=== PATIENT | female | born 1990 | race Caucasian/White ===

== ENCOUNTER 2017-06-18 07:49 | Inpatient (IN) | payer MEDICAID ==
[2017-06-18] MEDS ORDERED: Ondansetron 4 MG/2 ML SDV IV PRN ×2 (08:07→08:36)
[2017-06-18] MEDS ORDERED: Penicillin G Potassium 5 MILLUNITS in Sodium Chloride 0.9% 100 ML IV ONE (08:07)
[2017-06-18] MEDS: Lactated Ringers 1,000 ML IV SCH ×2 (08:15→08:49)
[2017-06-18] MEDS ORDERED: fentaNYL 100 MCG/2 ML SDV ONE (08:29)
[2017-06-18] MEDS ORDERED: Misoprostol 400 MCG (4 X 100 MCG TAB) RECTAL PRN (08:36)
[2017-06-18] MEDS ORDERED: Lidocaine 1% 30 ML SDV INJECT PRN (08:36)
[2017-06-18] MEDS ORDERED: Methylergonovine 0.2 MG/1 ML Amp IM PRN (08:36)
[2017-06-18] MEDS ORDERED: Carboprost Tromethamine 250 MCG/1 ML Amp IM PRN (08:36)
[2017-06-18] MEDS ORDERED: Lactated Ringers 1,000 ML IV SCH (08:45)
[2017-06-18] MEDS ORDERED: ePHEDrine 50 MG/ML SDV ONE (08:57)
--- NOTE | 2017-06-18 09:15 | PCM.SN ---
- Free Text/Narrative Note: Called to provide labor pain relief via intrathecal for this patient. After chart review, npo status verified, consent signed and monitors on, proceeded. With patient in sitting position, sterile prep/drape. Skin wheal at L3-4 with 1 % Lidocaine. LP X 2 at L3-4 with 25g pencan spinal needle. Positive, free flowing clear CSF, no heme, no paresthesia. Then 6mg mpf HB spinal 0.75% marcaine, 20mcg sufenta, 30mcg fentanyl, 0.4ml preservative free normal saline, plus epi wash given intrathecally. Pt to supine after. Block to around T4. Maternal SBP dropped to high 80's and FHT's dropped into 70's very transiently, so 20mg ephedrine given iv with good response. Pt also placed in left lateral position. Pt reported pain relief with subsequent contractions.
[2017-06-18] MEDS ORDERED: Oxytocin/Normal Saline 30 UNIT/500 ML BAG IV SCH (09:45)
[2017-06-18] MEDS ORDERED: Sodium Chloride 0.9% 10 ML Syringe FLUSH PRN (11:58)
[2017-06-18] MEDS ORDERED: Simethicone 80 MG Tab.Chew PO PRN (11:58)
[2017-06-18] MEDS ORDERED: Benzocaine/Menthol 20%-0.5% Spray 56 GM Canister TOP PRN (11:58)
--- NOTE | 2017-06-18 12:23 | HP ---
CHIEF COMPLAINT: Increased force and frequency of contractions. HISTORY OF PRESENT ILLNESS: A 27-year-old, 2, para 1-0-0-1, currently at 39 and 3/7 weeks gestation based on last menstrual period, presenting to Labor and Delivery reporting having contractions pretty much all day yesterday, but this morning they got stronger and closer together. She was evaluated yesterday and they were only about every 5 to 7 minutes. This morning, she got up and they were about every 5 minutes and then got as close as every 3 minutes by the time she presented to the hospital. She has had some bloody show. No leakage of fluid. movement has been good. Denies any symptoms of preeclampsia. Denies other questions or concerns at this time. OBSTETRICAL HISTORY: Normal anatomy ultrasound dating is excellent. She has had an anterior placenta with no previa. Prior delivery 05/08/2013, at 37 weeks 3 days' gestation, female infant, born vaginally, and her name is Kelsie, weight 2680 g, under intrathecal anesthesia. First stage of 12 hours, stage II of 30 minutes, scores of 9 and 9. The patient reports being very sick during that and had lost 45 pounds and only regained 9. She reports that she progressed quickly after her intrathecal and only needed to push about 5 times. 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 Malone, here at [facility]. LABORATORY DATA: Blood type B positive. Antibody screen negative. Rubella immune. Syphilis negative. Urine culture negative. Hepatitis B negative. HIV negative. Gonorrhea and chlamydia negative. TSH normal. Hepatitis C negative. Quad screen normal. Group B strep positive. She is getting her penicillin for prophylaxis at this time, and records are reviewed. PAST MEDICAL HISTORY: Back pain. Body piercing's. No IV drug use or blood transfusions. History of chronic headaches. Family history of heart attack. Menarche at age 14 to 15 with menses every 28 days and 5 days of flow. She does have some tattoos. PAST SURGICAL HISTORY: Bunionectomy, tonsillectomy, and adenoidectomy. FAMILY HISTORY: Father with heart disease, hypertension, and heart attack at age 40, and his second in his 60s. Brother with diabetes, who in his late 30s from complications of diabetes. Maternal grandmother with diabetes and ovarian cancer. Maternal grandfather with multiple myeloma. Paternal grandmother with diabetes and heart disease. Daughter with Vieyra syndrome. Family history is otherwise unremarkable. SOCIAL HISTORY: The patient is single and has 1 child. 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 She has never smoked. She does not do any drugs or alcohol. Father of the baby is Rangel Dixon and he is a police lieutenant, and they live in [place] together. MEDICATIONS: 1. vitamins 1 daily. 2. Tylenol as needed. ALLERGIES: Pineapple causes swelling of the face, nose, lips, and angioedema. REVIEW OF SYSTEMS: As listed under history of present illness. No fever or chills. No chest pain or shortness of breath. No blurry vision or headaches. She has had a persistence of her swelling, and denies other concerns. PHYSICAL EXAMINATION: General: This is a pleasant, well-appearing 27-year-old female. Vital Signs: Initial blood pressure 142/92, and pulse of 96. Recheck was 149/94, 156/99; eventually came down to 136/90; and then after her intrathecal, 98/52 and 87/53. HEENT: Unremarkable. Heart: Regular without obvious murmur. Lungs: Clear to auscultation bilaterally. Abdomen: Gravid, soft, and nontender. Baby is cephalic. heart tones were tracing at 135 beats per minute with moderate rqlv-[id number] variability and accelerations noted. Contractions about every 3 to 4 minutes. Cervix: Per nurse's exam was 6 cm dilated, and 50% to 75% effaced, and -2 station. Extremities: 1+ edema bilaterally. No erythema or tenderness noted. Skin: Warm, dry, and appropriate for race without infections. After patient's intrathecal, she did have a heart tone deceleration down into the 70s that lasted approximately 6 minutes and responded well to ephedrine. At the same time, I was checking and performing stimulation and she had spontaneous rupture of clear fluid. ASSESSMENT: 1. A 39 and 3/7 weeks intrauterine based on last menstrual period in active labor. 2. Blood type B positive. 3. Rubella immune. 4. Group B strep positive, being treated with penicillin. 5. 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 6. History of heartburn in . 7. Cholestasis. 8. History of yeast infection in the first trimester. PLAN: The patient was admitted to Labor and Delivery. She has been getting her penicillin for prophylaxis. Allowing the baby to recover after that deceleration. We continue to monitor her blood pressures and her symptoms closely. We will also be checking her labor progress and if necessary augmenting, however, I anticipate based on her prior history she will continue to progress well. [facility] /[id number]
--- NOTE | 2017-06-18 16:08 | DEL ---
DATE: 06/18/2017 PREPROCEDURE DIAGNOSES: 1. 2, para 1-0-0-1. 2. A 39 and 3/7 weeks gestation by last menstrual. 3. Blood type B positive. Rubella immune. Group B strep positive, treated during labor. 4. History of child with Vieyra syndrome. 5. Heartburn of . 6. Cholecystitis. 7. Yeast infection in the first trimester. POSTPROCEDURE DIAGNOSES: 1. 2, para 2-0-0-2. 2. A 39 and 3/7 weeks gestation by last menstrual. 3. Blood type B positive. Rubella immune. Group B strep positive, treated during labor. 4. History of child with Vieyra syndrome. 5. Heartburn of . 6. Cholecystitis. 7. Yeast infection in the first trimester. 8. Status post uncomplicated vaginal delivery of viable female infant. BRIEF HISTORY: A 27-year-old female, admitted to the hospital this morning with increased force and frequency with regular contractions. She has had a little bit of bloody show and was 6 cm on admission. She continued to progress nicely through labor with an intrathecal for anesthesia. She was in labor for about 5 hours and pushed for 9 minutes prior to delivery. Labor course was only remarkable for a 5 minute deceleration due to hypotension after the intrathecal, and baby recovered well from that with usual measures. PROCEDURE IN DETAIL: With the patient in lithotomy position, she delivered a viable female in the OA position over intact perineum. After the infant's head delivered shoulders followed thereafter, and then baby was briefly dried, crying well, and delivered up to mother's abdomen. No bulb suction was necessary. Delayed cord clamping was performed, and then the umbilical cord was cut, and three-vessel verified, cord blood sample obtained, and placenta delivered by gentle cord traction and concomitant uterine massage, inspected and intact. Labia, vagina, and cervix were inspected and intact. There were no complications. FINDINGS: Viable female , scores of 9 and 9. weight 3310 g, 7 pounds 5 ounces. ESTIMATED BLOOD LOSS: 150 mL. COMPLICATIONS: None. DISPOSITION: Mother and baby to stay in the room at this time and start . [facility] /[id number]
[2017-06-18] MEDS: Ibuprofen 800 MG Tab PO PRN (16:48)
[2017-06-18] MEDS: Docusate Sodium 100 MG Cap PO PRN (21:19)
[2017-06-18] MEDS: Acetaminophen 325 MG Tab PO PRN (23:33)
[2017-06-19] MEDS: Ibuprofen 800 MG Tab PO PRN ×2 (00:52→09:01)
[2017-06-19] MEDS: Acetaminophen/oxyCODONE 325-5 MG Tab PO PRN ×2 (00:52→07:26)
[2017-06-19] MEDS ORDERED: Prenatal Multivitamin with Calcium/Folic Acid/Iron Tab PO SCH (09:00)
[2017-06-19] MEDS: Docusate Sodium 100 MG Cap PO PRN (09:01)
[2017-06-19 10:03] VITALS: BP 121/67
[2017-06-19] MEDS: Acetaminophen 325 MG Tab PO PRN (12:48)
[2017-06-19] MEDS ORDERED: ePHEDrine 50 MG/ML SDV IV ONE (14:19)
[2017-06-19] MEDS ORDERED: fentaNYL 100 MCG/2 ML SDV ITHECAL ONE (14:19)
--- NOTE | 2017-06-19 14:22 | DISCH ---
ADMITTING DIAGNOSES: 1. 2, para 1-0-0-1, at 39 and 3/7 weeks' gestation. 2. Blood type B positive. Rubella immune. Group B streptococcus positive. 3. 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 4. Heartburn of . 5. Cholestasis. 6. History of yeast infection in the first trimester. DISCHARGE DIAGNOSES: 1. 2, para 2-0-0-2, at 39 and 3/7 weeks' gestation. 2. Blood type B positive. Rubella immune. Group B streptococcus positive. 3. 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 4. Heartburn of . 5. Cholestasis. 6. History of yeast infection in the first trimester. 7. Transient hypertension with negative preeclampsia labs. 8. Status post spontaneous vaginal delivery of viable female without complications. BRIEF HISTORY: A 27-year-old female admitted to the hospital yesterday in active labor and 6 cm dilated on admission, was given penicillin for group B strep prophylaxis and an intrathecal for pain management. She progressed nicely through labor; and after about 5 hours of active labor, she went on to stage II, pushed for 9 minutes, and delivered a viable female over intact perineum. No lacerations. No complications. Baby did well. scores of 9 and 9 and weight of 3310 g, 7 pounds 5 ounces. HOSPITAL COURSE: The patient has done well since the time of delivery, ambulating, tolerating regular diet, voiding without difficulties, passing flatus, and has not yet had a bowel movement. No symptoms of preeclampsia. Bleeding has been light to moderate. has been going well, and she is meeting discharge criteria. DISCHARGE CONDITION: Good. Blood pressures have improved. PHYSICAL EXAMINATION: Vital Signs: Temperature 97.7, pulse 72, blood pressure 121/67, respiratory rate of 15, and O2 saturations 97% on room air. Heart: Regular without obvious murmur. Lungs: Clear to auscultation bilaterally. Abdomen: Soft and nontender. Fundus is firm and below the umbilicus. Extremities: Trace edema bilaterally. No erythema or tenderness noted. DISPOSITION: Home with family. FOLLOWUP: A followup 6-week exam will be scheduled. LABORATORY DATA: Baseline hemoglobin was 12.8 and platelets of 272. There was minimal bleeding with delivery. Therefore, repeat lab was not performed. MEDICATIONS: 1. Percocet 5/325 one tablet every 4 to 6 hours as needed for pain, dispense 10. 2. Ibuprofen 600 mg every 6 hours as needed for pain. 3. Tylenol 650 mg every 6 hours as needed for pain. 4. Continue vitamin 1 daily. DISCHARGE INSTRUCTIONS: The routine post vaginal delivery instructions for mother were provided, and her questions were answered. [facility] /[id number]
--- NOTE | 2017-06-20 16:10 | PCM.POSTAN ---
POST ANESTHESIA ASSESSMENT - MENTAL STATUS Mental Status: Alert - VITAL SIGNS Pulse Rate: 72 SaO2: 100 Resp Rate: 15 Blood Pressure: 121/67 Temperature: 36.3 C - RESPIRATORY Respiratory Status: Respiratory Rate WNL - CARDIOVASCULAR CV Status: Pulse Rate WNL - GASTROINTESTINAL GI Status: No Symptoms - POST OP HYDRATION Hydration Status: Adequate & Stable - OBSERVATIONS Free Text/Narrative:: Pt was d/c prior to my being able to see her. Nurses report that she had no c/ o. No post anesthesia complications noted.
== END 2017-06-19 14:20 | disposition home or self-care (01) | DRG 774 ==
LOC: DL.OBCHECK 07:49 → DL.OB 08:12 → OBSVTOIN 11:26
PROVIDERS: ADMIT Family Medicine; ATTEND Family Medicine
PROC: 10E0XZZ Delivery of Products of Conception, External Approach (ICD-10-PCS; principal; 2017-06-18)
PROC: 4A1HXFZ Monitoring of Products of Conception, Cardiac Rhythm, External Approach (ICD-10-PCS; 2017-06-18)
PROC: 00HU33Z Insertion of Infusion Device into Spinal Canal, Percutaneous Approach (ICD-10-PCS; 2017-06-18)
PROC: 3E0R3CZ (ICD-10-PCS; 2017-06-18)
DX: O99.824 Streptococcus B carrier state complicating childbirth (principal); O13.5 Gestational [pregnancy-induced] hypertension without significant proteinuria, complicating the puerperium; K83.1 Obstruction of bile duct; O76 Abnormality in fetal heart rate and rhythm complicating labor and delivery; O26.62 Liver and biliary tract disorders in childbirth; Z91.018 Allergy to other foods; Z3A.39 39 weeks gestation of pregnancy; Z37.0 Single live birth
CPT/HCPCS: 01967; 36415; 82570; 83615; 84156; 84450; 84460; 84520; 84550; 85025; A9270-GY; J2405; J2540; J2590; J3010; J7050; J7120

== ENCOUNTER 2018-11-15 01:26 | Inpatient (IN) | payer BC ==
[2018-11-15] MEDS ORDERED: Misoprostol 25 MCG (1/4 of 100 MCG) Tab VAG PRN (02:30)
[2018-11-15] MEDS ORDERED: Oxytocin/Normal Saline 30 UNIT/500 ML BAG IV SCH (02:30)
[2018-11-15] MEDS ORDERED: Sodium Chloride 0.9% 10 ML Syringe FLUSH PRN ×2 (02:30→02:37)
[2018-11-15] MEDS ORDERED: Lidocaine 1% 30 ML SDV INJECT PRN (02:37)
[2018-11-15] MEDS ORDERED: Methylergonovine 0.2 MG/1 ML Amp IM PRN (02:37)
[2018-11-15] MEDS ORDERED: Tranexamic Acid 1,000 MG in Sodium Chloride 0.9% 100 ML IV PRN (02:37)
[2018-11-15] MEDS ORDERED: Misoprostol 400 MCG (4 X 100 MCG TAB) RECTAL PRN (02:37)
[2018-11-15] MEDS ORDERED: Carboprost Tromethamine 250 MCG/1 ML Amp IM PRN (02:37)
[2018-11-15] MEDS ORDERED: EPINEPHrine 1 MG/ML SDV ONE ×2 (02:43→10:44)
[2018-11-15] MEDS ORDERED: fentaNYL 100 MCG/2 ML SDV ITHECAL ONE (02:43)
[2018-11-15] MEDS ORDERED: Lactated Ringers 1,000 ML IV SCH (02:45)
[2018-11-15] MEDS: Lactated Ringers 1,000 ML IV SCH ×5 (02:50→15:09)
[2018-11-15] MEDS: Ondansetron 4 MG/2 ML SDV IV PRN ×3 (03:30→15:35)
--- NOTE | 2018-11-15 08:41 | OBOUT ---
DATE: 11/15/2018 INITIAL TIME: 1:36 a.m. REPORT: Baseline heart rate 150 beats per minute. Moderate logf-yo-zpoc variability. Only 1 acceleration in 40 minutes. Contractions irregular every 4 to 6 minutes. INTERPRETATION: Category II, reassuring, but nonreactive nonstress test. Continued NST monitoring does show baseline change to 140 for the baseline. Moderate ngsy-rf-hqnb variability. Accelerations noted. Contraction pattern remained irregular every 4 to 6 minutes. Interpretation of second portion is now category I. [facility] /[id number]
--- NOTE | 2018-11-15 09:22 | HP ---
HISTORY OF PRESENT ILLNESS: Nicolasa Dixon is age 28-year-old, G3, P2-0-0-2, presenting at 39 weeks and 5 days' gestation with painful contractions and nausea and vomiting since this afternoon, was seen in clinic earlier this afternoon where her membranes were stripped. She has been unable to keep anything down this afternoon. The patient reports good movement and denies rupture of membranes or vaginal bleeding. The patient is also diet- controlled gestational diabetic. Last menstrual period was 02/10/2018. Estimated date of delivery is 11/17/2018. ABO Rh is B positive. Antibody screen is negative. She is rubella immune. GBS negative. Gestational diabetic, diet controlled. PAST OBSTETRIC HISTORY: #1 delivered at term via normal spontaneous vaginal delivery with a weight of 3310 g. #2 delivered at term via normal spontaneous vaginal delivery. Weight of 2608 g. The patient has plans to breastfeed. PAST MEDICAL HISTORY: Includes a history of cholelithiasis diagnosed by ultrasound in December of 2016, but no cholecystectomy. PAST SURGICAL HISTORY: Includes tonsillectomy and bunion removal. MEDICATIONS: Takes a . ALLERGIES: No known drug allergies, but is allergic to pineapples. SOCIAL HISTORY: Never smoker. Occasional alcohol use, but none while knowing she was . She lives at home in [place] with her and 2 children. 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 PHYSICAL EXAMINATION: Vital Signs: Blood pressure 130/84, pulse 112, and temperature 97.5. heart tones average 140, moderate variability initially. No accelerations and category 2 strip, which improved after observation with contractions every 3 to 9 minutes. General: She is a well-developed, well-nourished, and gravid woman, in no apparent distress, sitting in hospital bed. HEENT: unremarkable. Cardio: Tachycardic, regular rhythm. No murmurs, rubs, or gallops. Lungs: Clear to auscultation bilaterally. No rhonchi, wheezes, or rales. Abdomen: Gravid. Fetus is vertex. Fundus is nontender. Pelvic: Cervical exam 3 cm, 50% effaced, 0 to 3 station. Ext: No edema, erythema, or tenderness. ASSESSMENT: 28-year-old, 3, para 2-0-0-2 at 39 weeks 5 days' gestation, who presents with painful contractions and nausea and vomiting in the setting of a category 2 heart tracing, which started to improve over her visit. PLAN: Admit to Labor and Delivery. IV resuscitation with lactated Ringer's at 125 mL an hour. We will do continuous electronic monitoring, Pitocin augmentation, and anticipate a normal spontaneous vaginal delivery. [facility] /[id number] MTDSana
[2018-11-15] MEDS ORDERED: fentaNYL 100 MCG/2 ML SDV ONE ×2 (10:44→15:55)
--- NOTE | 2018-11-15 11:03 | PCM.SN ---
- Free Text/Narrative Note: Intrathecal. Sitting position, sterile prep and drape. 1 % lidociane w bicarb for skinwheal to L2 L3 interspace, introducer, 24 ga pencan x 1. Pos CSF, neg heme, neg parrasthesia. 24 ga pencan x 1. Pos CSF, neg heme, neg parasthesia. 1: 1000 pf epi wash, 15 mcg pf sufenta, 35 mcg pf fentanyl, 0.4 ml pf ns and 6 mg of 0.75 % pf bupivacaine injected after CSF aspiration. Pt to L lateral position. Procedure time 1040 to 1110
[2018-11-15] MEDS ORDERED: fentaNYL 100 MCG/2 ML SDV IVPUSH ONE (14:58)
--- NOTE | 2018-11-15 16:13 | PCM.SN ---
- Free Text/Narrative Note: Intrathecal. Sitting position, sterile prep and drape. 1 % lidocaine w bicarb for skinwheal to L2 L3 interspace, introducer, 24 ga pencan x 1. Pos CSF, neg heme, neg parasthesia. 24 ga pencan x 1. Pos CSF, neg heme, neg parasthesia. 15 mcg pf sufenta, 35 mcg pf fentanyl, 0.4 ml pf ns and 6 mg of 0.75 % pf bupivacaine injected after CSF aspiration. Pt to L lateral position. Procedure time 1555 to 1625
[2018-11-15] MEDS ORDERED: Benzocaine/Menthol 20%-0.5% Spray 56 GM Canister TOP PRN (18:00)
[2018-11-15] MEDS ORDERED: Simethicone 80 MG Tab.Chew PO PRN (18:00)
[2018-11-15] MEDS: Docusate Sodium 100 MG Cap PO PRN (19:35)
[2018-11-15] MEDS: Ibuprofen 800 MG Tab PO PRN (19:35)
[2018-11-16] MEDS: Acetaminophen 325 MG Tab PO PRN ×2 (02:27→23:18)
--- NOTE | 2018-11-16 03:17 | DEL ---
DATE: 11/15/2018 PREPROCEDURE DIAGNOSIS: 1. 2. 39 and 5/7 weeks 3. Gestational diabetes, diet controlled. 4. History of child with Vieyra syndrome. POSTOPERATIVE DIAGNOSIS: Same plus 5. Delivery viable male 6. Delivery macrosomic . BRIEF HISTORY: Present with signs of early labor with a category 2 tracing. Impeding storm and patient lives an hour away with anticipated no travel advisories. Labor augmented with Pitocin. Category 1 tracing through labor. DETAILS: Normal spontaneous vaginal delivery of a viable male infant in the OA position over intact perineum. After delivery of the head there was a few second delay for delivery of the body with Judith position. Tight nuchal cord could not be reduced bluntly and was reduced with somersault maneuver. Baby had no tone so three vessel cord was clamped and cut. Baby taken to the warmer for resuscitation. Placenta was delivered by massage and gentle cord traction, it was later inspected and intact. Fundus was firm with minimal bleeding. The perineum and vagina were inspected with no perineal lacerations observed. Hemostasis was achieved. The patient tolerated the procedure well and was recovering in Labor and Delivery. Infant to Nursery pending further status. EBL: 350 mL. COMPLICATIONS: Unanticipated distress. FINDINGS: Viable male with weight of 4120 g and scores of 2 at one minute, 6 at five minutes, and 7 at ten minutes delivered SLOAN with nuchal cord x1 and light meconium. [facility] /[id number] MTDSana
[2018-11-16] MEDS: Ibuprofen 800 MG Tab PO PRN ×2 (03:24→18:14)
[2018-11-16] MEDS: Acetaminophen/HYDROcodone 325-5 MG Tab PO PRN ×2 (04:59→09:29)
[2018-11-16] MEDS: Docusate Sodium 100 MG Cap PO PRN (09:24)
[2018-11-16] MEDS: Prenatal Multivitamin with Calcium/Folic Acid/Iron Tab PO SCH (09:24)
[2018-11-16] MEDS ORDERED: fentaNYL 100 MCG/2 ML SDV ITHECAL ONE (13:57)
[2018-11-16] MEDS ORDERED: Bisacodyl 10 MG Supp RECTAL ONE (15:02)
[2018-11-17] MEDS: Acetaminophen/HYDROcodone 325-5 MG Tab PO PRN (03:13)
[2018-11-17] MEDS: Docusate Sodium 100 MG Cap PO PRN (10:13)
[2018-11-17] MEDS: Prenatal Multivitamin with Calcium/Folic Acid/Iron Tab PO SCH (10:13)
[2018-11-17] MEDS: Ibuprofen 800 MG Tab PO PRN (10:13)
[2018-11-17 11:20] VITALS: BP 122/69
--- NOTE | 2018-11-17 11:29 | PN ---
DATE: 11/16/2018 PPD#1 for Nicolasa, a 28-year-old G3, now P3, delivered a male via spontaneous vaginal delivery. initially had respiratory distress requiring resuscitation, but appears to be stable. Nicolasa is and states that things are going well. Has lochia rubra, but denies having any clots. Describes her pain as sore and crampy, requiring more pain medication last night , but states that medication has pain well controlled now. She is ambulating and urinating without difficulty, although needs some help going to the restroom. PHYSICAL EXAMINATION: Vital Signs: Temperature is 97.6 Fahrenheit, pulse of 99, blood pressure 115/64, respirations 16, and oxygen saturation 99% on room air. General: Nicolasa is awake and alert. Appearing in no distress, sitting up in bed, chatting with company. Heart: Regular rate and rhythm. No murmurs, rubs, or gallops. Lungs: Clear to auscultation bilaterally. No rhonchi or wheezing. Abdomen: Soft, nontender. Uterus is firm at the level of the umbilicus. Extremities: Warm and dry. No edema noted. No calf tenderness. ASSESSMENT: Nicolasa is day #1 status post normal spontaneous vaginal delivery. PLAN: 1. Continue encouraging ambulation. 2. Tolerating diet well. 3. Encourage breast feeding. 4. Plan to discharge tomorrow if the patient continues to do well and baby continues to be stable. Followup appointment to be scheduled 6 weeks . Patient seen and examined. Agree with note scribed on my behalf by Ayden Perez, 4. -[facility] 11/18/18 2334 MODL /[id number] MTDD
--- NOTE | 2018-11-20 09:56 | DISCH ---
PRIMARY DIAGNOSIS: A 39 weeks 5 days intrauterine with delivery of a liveborn . SECONDARY DIAGNOSIS: Gestational diabetes, diet controlled. PROCEDURES PERFORMED: 1. Spontaneous vaginal delivery with a delivery of live male with scores of two at 1 minute, six at 5 minutes, and seven at 10 minutes. 2. Artificial rupture of membranes. REASON FOR HOSPITALIZATION: This 28-year-old, G3, P2-0-0-2, presented at 39 weeks 5 days gestation in spontaneous labor. The was complicated by gestational diabetes, controlled with diet. LABORATORY DATA: A positive with negative antibody screen, rubella immune, VDRL nonreactive, and group B Strep negative. She remained normotensive throughout her . At the time of admission, she recorded positive movement and denied loss of fluid. PHYSICAL EXAMINATION: Vital Signs: Temp 98.7F BP 122/69 P 16 O2 99% on room air General: The patient is alert, sitting up in bed, holding infant, appearing in no distress. HEENT: Normocephalic and atraumatic. Extraocular movements intact. Sclerae nonicteric. Mucous membranes pink and moist. Neck: Supple. No lymphadenopathy. Heart: Regular rate and rhythm. No murmurs, rubs, or gallops. Lungs: Clear to auscultation bilaterally. No rhonchi or wheezes. Normal respiratory effort. Abdomen: Soft. Some fundal tenderness. Uterus firm at the level of the umbilicus. Bowel sounds in all 4 quadrants. Extremities: Warm and dry. No evidence of pedal edema or calf tenderness. LABORATORY AND X-RAY DATA: CBC WBC 11.0 H/H 13.7/41.9 Plt 248 UA Trace Leukocyte Esterase Mod. Epithelial Cells Many Urine Bacteria Likely contaminant HOSPITAL COURSE: The patient was admitted in latent labor the morning of 11/15/2018 after presenting with nausea and vomiting. The heart rate was not reactive and her initial NST was a category 2 strip. Given the category 2 NST, it was ultimately decided to augment her labor with Pitocin. Her labor progressed well and at 1500 hours, we performed an artificial rupture of membranes with return of clear fluids. At that time, her cervix was dilated to 4 cm, 90%, -3 station. Intrathecal anesthesia was requested and obtained. At 1630 hours, the patient was noted to be completely dilated and at 0 station and then was allowed to push. After pushing for 30 minutes, the patient delivered a nonresponsive baby boy. The was taken immediately to the warmer for pediatric resuscitation and was eventually stabilized. There were no noted perineal tears. The patient is the infant well and has remained afebrile with minimal lochia since delivery. The patient was voiding and ambulating without difficulty by the evening of day #0, and she was deemed stable for discharge on day 2. INSTRUCTION WITH DISCHARGE: The patient was advised to remain at pelvic rest for 6 weeks, this includes no tampon, douching, or intercourse. No driving while taking narcotics. She was asked to call with any signs or symptoms of infection including fever greater than 100.5 degrees, pain, malodorous vaginal discharge, or bleeding greater than 1 pack per hour. MEDICATIONS AT DISCHARGE: Include: 1. Narco 325-5 1 tab PO Q4H PRN Cramping 2. She was asked to continue her vitamin as prescribed. Follow up in [address] Hutchison for routine checkup. [facility] /[id number] SETH
== END 2018-11-17 11:45 | disposition home or self-care (01) | DRG 560 ==
LOC: DL.OBCHECK 01:26 → DL.OB 02:42 → OBSVTOIN 17:16 → EDSTATUS 12-07 01:09
PROVIDERS: ADMIT Family Medicine; ATTEND Family Medicine
PROC: 10E0XZZ Delivery of Products of Conception, External Approach (ICD-10-PCS; principal; 2018-11-15)
PROC: 10907ZC Drainage of Amniotic Fluid, Therapeutic from Products of Conception, Via Natural or Artificial Opening (ICD-10-PCS; 2018-11-15)
DX: O24.420 Gestational diabetes mellitus in childbirth, diet controlled (principal); Z3A.39 39 weeks gestation of pregnancy; Z37.0 Single live birth; Z91.018 Allergy to other foods; O69.1XX0 Labor and delivery complicated by cord around neck, with compression, not applicable or unspecified; O36.63X0 Maternal care for excessive fetal growth, third trimester, not applicable or unspecified; O77.9 Labor and delivery complicated by fetal stress, unspecified; Z23 Encounter for immunization
CPT/HCPCS: 36415; 59409; 81001; 82962; 85027; A9270-GY; J0171; J2405; J2590; J3010; J7120

== ENCOUNTER 2020-10-21 00:40 | Emergency (ER) | payer BC ==
[2020-10-21 00:49] VITALS: BP 139/96; PULSE 97
--- NOTE | 2020-10-21 01:09 | EDM.PDOC ---
ED HPI GENERAL MEDICAL PROBLEM - General Chief Complaint: ENT Problem Stated Complaint: HAS A "CHIP"STUCK IN HER THROAT? Time Seen by Provider: 10/21/20 00:58 Source of Information: Reports: Patient History Limitations: Reports: No Limitations - History of Present Illness INITIAL COMMENTS - FREE TEXT/NARRATIVE: This 30 yo female patient reports to the ED due to a possible chip stuck in her throat. The patient reports she was eating chips at about 2300 last night when she started to feel like the chip was stuck. The patient reports she has been drinking plenty of fluids without difficulties. The patient reports she has not been coughing, but continues to feel discomfort. Onset: Today Duration: Constant Location: Reports: Neck Quality: Reports: Ache Severity: Mild Improves with: Reports: None Worsens with: Reports: None Context: Reports: Other Associated Symptoms: Reports: No Other Symptoms Throat Pain Score (Numeric/FACES): 6 - Related Data Allergies Allergy/AdvReac Type Severity Reaction Status Date / Time No Known Allergies Allergy Verified 10/21/20 00:49 Home Meds: Home Meds Escitalopram Oxalate [Lexapro] 10 mg PO DAILY 10/21/20 [History] Past Medical History HEENT History: Reports: Impaired Vision Other HEENT History: wears glasses Cardiovascular History: Reports: None Respiratory History: Reports: Other (See Below) Other Respiratory History: cold Gastrointestinal History: Reports: Cholelithiasis, Other (See Below) Other Gastrointestinal History: cholecystitis Genitourinary History: Reports: None 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 History: Reports: Hyperemesis, Neurological History: Reports: Migraines Psychiatric History: Reports: None Oncologic (Cancer) History: Reports: None Dermatologic History: Reports: None - Infectious Disease History Infectious Disease History: Reports: None - Past Surgical History Head Surgeries/Procedures: Reports: None HEENT Surgical History: Reports: Adenoidectomy, Tonsillectomy Musculoskeletal Surgical History: Reports: Other (See Below) Other Musculoskeletal Surgeries/Procedures:: bunionectomy Social & Family History - Family History Family Medical History: No Pertinent Family History - Tobacco Use Tobacco Use Status *Q: Never Tobacco User Second Hand Smoke Exposure: No - Caffeine Use Caffeine Use: Reports: Soda - Recreational Drug Use Recreational Drug Use: No ED ROS ENT - Review of Systems Review Of Systems: Comprehensive ROS is negative, except as noted in HPI. ED EXAM, ENT - Physical Exam Exam: See Below Exam Limited By: No Limitations General Appearance: Alert, WD/WN, Mild Distress Eye Exam: Bilateral Eye: EOMI, Normal Inspection, PERRL Ears: Normal External Exam, Normal Canal, Hearing Grossly Normal, Normal TMs Nose: Normal Inspection, Normal Mucousa, No Blood Mouth/Throat: Normal Inspection, Normal Gums, Normal Lips, Normal Oropharynx, Normal Teeth Head: Atraumatic, Normocephalic Neck: Normal Inspection, Supple, Non-Tender, Full Range of Motion Respiratory/Chest: No Respiratory Distress, Lungs Clear, Normal Breath Sounds, No Accessory Muscle Use, Chest Non-Tender Cardiovascular: Normal Peripheral Pulses, Regular Rate, Rhythm, No Edema, No Gallop, No JVD, No Murmur, No Rub GI/Abdominal: Normal Bowel Sounds, Soft, Non-Tender, No Organomegaly, No Distention, No Abnormal Bruit, No Mass (Female) Exam: Deferred Rectal (Female) Exam: Deferred Back: Normal Inspection, Full Range of Motion Extremities: Normal Inspection, Normal Range of Motion, Non-Tender, No Pedal Edema, Normal Capillary Refill Neurological: Alert, Oriented, CN II-XII Intact, Normal Cognition, Normal Gait, Normal Reflexes, No Motor/Sensory Deficits Psychiatric: Normal Affect, Normal Mood Skin: Warm, Dry, Intact, Normal Color, No Rash Lymphatic: No Adenopathy Course - Vital Signs Last Recorded V/S: Last Vital Signs Temp 36.5 C 10/21/20 00:43 Pulse 97 10/21/20 00:43 Resp 18 10/21/20 00:43 BP 139/96 H 10/21/20 00:43 Pulse Ox 100 10/21/20 00:43 Departure - Departure Time of Disposition: 01:06 Disposition: Home, Self-Care 01 Condition: Fair Clinical Impression: Foreign body sensation in throat - Discharge Information *PRESCRIPTION DRUG MONITORING PROGRAM REVIEWED*: Not Applicable *COPY OF PRESCRIPTION DRUG MONITORING REPORT IN PATIENT KRISTEL: Not Applicable Forms: ED Department Discharge Care Plan Goals: The patient was advised of the examination results during the visit. The patient was encouraged to continue to drink fluids and eat soft foods. If the patient has any additional symptoms or concerns, the patient should either return to the emergency department or visit her primary care facility. Sepsis Event Note (ED) - Evaluation Sepsis Screening Result: No Definite Risk - Focused Exam Vital Signs: Vital Signs Temp Pulse Resp BP Pulse Ox 10/21/20 00:43 36.5 C 97 18 139/96 H 100
== END 2020-10-21 01:12 | disposition home or self-care (01) ==
LOC: DL.ED 00:40
DX: R09.89 Other specified symptoms and signs involving the circulatory and respiratory systems (principal); Z79.899 Other long term (current) drug therapy
CPT/HCPCS: 99282; 99283

== ENCOUNTER 2021-01-18 16:42 | Emergency (ER) | payer BC ==
[2021-01-18 16:54] VITALS: BP 126/60; PULSE 94
--- NOTE | 2021-01-18 17:15 | CR ---
PROCEDURE INFORMATION: Exam: XR Right Knee Exam date and time: 01/18/2021 4:55 PM Age: 30 years old Clinical indication: Other: [place] knee "pop" after jumping off something; Additional info: Right knee injury/pain TECHNIQUE: Imaging protocol: XR Right knee. Views: 3 views. COMPARISON: No relevant prior studies available. FINDINGS: Bones/joints: The alignment of the joints is anatomic and the joint spaces are maintained. There is no evidence of acute fracture. There is no evidence of a joint effusion. Soft tissues: Unremarkable. IMPRESSION: Normal appearing knee.
--- NOTE | 2021-01-18 17:38 | EDM.PDOC ---
Scribed by Dali Angeles 01/18/21 1718 for Ame Padilla MD ED HPI GENERAL MEDICAL PROBLEM - General Chief Complaint: Lower Extremity Injury/Pain Stated Complaint: RIGHT KNEE PAIN, HEARD A POP Time Seen by Provider: 01/18/21 16:47 Source of Information: Reports: Patient, RN, RN Notes Reviewed History Limitations: Reports: No Limitations - History of Present Illness INITIAL COMMENTS - FREE TEXT/NARRATIVE: Patient presents to ED by POV stating she was at the park playing with her kids when she jumped off of a 3-4 foot ledge and her knee popped and gave out on landing. It is painful to bare weight. She is able to move extremity. Onset: Today Duration: Constant Location: Reports: Lower Extremity, Right Quality: Reports: Ache Severity: Moderate Improves with: Reports: None Worsens with: Reports: None Associated Symptoms: Reports: No Other Symptoms Right Knee Pain Score (Numeric/FACES): 6 - Related Data Allergies Allergy/AdvReac Type Severity Reaction Status Date / Time No Known Allergies Allergy Verified 10/21/20 00:49 Home Meds: Home Meds Escitalopram Oxalate [Lexapro] 10 mg PO DAILY 10/21/20 [History] Past Medical History HEENT History: Reports: Impaired Vision Other HEENT History: wears glasses Cardiovascular History: Reports: None Respiratory History: Reports: Other (See Below) Other Respiratory History: cold Gastrointestinal History: Reports: Cholelithiasis, Other (See Below) Other Gastrointestinal History: cholecystitis Genitourinary History: Reports: None 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 History: Reports: Hyperemesis, Neurological History: Reports: Migraines Psychiatric History: Reports: None Oncologic (Cancer) History: Reports: None Dermatologic History: Reports: None - Infectious Disease History Infectious Disease History: Reports: None - Past Surgical History Head Surgeries/Procedures: Reports: None HEENT Surgical History: Reports: Adenoidectomy, Tonsillectomy Musculoskeletal Surgical History: Reports: Other (See Below) Other Musculoskeletal Surgeries/Procedures:: bunionectomy Social & Family History - Family History Family Medical History: No Pertinent Family History - Caffeine Use Caffeine Use: Reports: Soda Review of Systems - Review of Systems Review Of Systems: Comprehensive ROS is negative, except as noted in HPI. ED EXAM, GENERAL - Physical Exam Exam: See Below Exam Limited By: No Limitations General Appearance: Alert, WD/WN, No Apparent Distress, Obese Head: Atraumatic, Normocephalic Neck: Normal Inspection, Non-Tender, Full Range of Motion Respiratory/Chest: No Respiratory Distress, Chest Non-Tender Cardiovascular: Normal Peripheral Pulses Back Exam: Full Range of Motion Extremities: No Pedal Edema, Normal Capillary Refill, Leg Pain (Rt knee with mild anterior tenderness, no medial or lateral joint line tenderness, no posterior knee tenderness, near full ROM but with pain.). No: Joint Swelling Neurological: Alert, Oriented, No Motor/Sensory Deficits Psychiatric: Normal Affect, Normal Mood Skin Exam: Warm, Dry, Intact, Normal Color, No Rash ED TRAUMA EXTREMITY PROCEDURES - Splinting Right Lower Extremity Splint Site: Rt knee Pre-Procedure NV Status: Normal Post-Procedure NV Status: Normal Splint Material: Velcro Splint Design: Knee Immobilizer Applied & Form Fitted By: Nurse Provider Post-Splint Application NV Check: NV Status Normal, Good Position Complications: No Course - Vital Signs Last Recorded V/S: Last Vital Signs Temp 97.1 F 01/18/21 16:51 Pulse 94 01/18/21 16:51 Resp 20 01/18/21 16:51 BP 126/60 01/18/21 16:51 Pulse Ox 98 01/18/21 16:51 - Orders/Labs/Meds Orders: Active Orders 24 hr Category Date Time Status Immobilizer [RC] ASDIRECTED Care 01/18/21 17:30 Ordered - Radiology Interpretation Free Text/Narrative:: [facility] Final Radiology Report Call: [phone] assistance Online chat: [email or web address] Name: JASSI STEIN Age: 30Years F Date: 01/18/2021 SSN: -- : [id number] Study: CR KNEE 3V RT Requesting Physician: AME PADILLA Images: 3 Addl Studies: Provided Clinical History: Right knee injury/pain Contrast: Contrast Medium: Contrast Amount: Contrast Method: CONFIDENTIALITY STATEMENT This report is intended only for use by the referring physician, and only in accordance with law. If you received this in error, call [phone]. Page 1 of 1 PROCEDURE INFORMATION: Exam: XR Right Knee Exam date and time: 01/18/2021 4:55 PM Age: 30 years old Clinical indication: Other: [place] knee "pop" after jumping off something; Additional info: Right knee injury/pain TECHNIQUE: Imaging protocol: XR Right knee. Views: 3 views. COMPARISON: No relevant prior studies available. FINDINGS: Bones/joints: The alignment of the joints is anatomic and the joint spaces are maintained. There is no evidence of acute fracture. There is no evidence of a joint effusion. Soft tissues: Unremarkable. IMPRESSION: Normal appearing knee. Thank you for allowing us to participate in the care of your patient. Dictated and Authenticated by: Angelito Hoffmann MD 01/18/2021 5:15 PM Central Time ([place] & [place]) Departure - Departure Time of Disposition: 17:36 Disposition: Home, Self-Care 01 Condition: Good Clinical Impression: Right knee sprain Qualifiers: Encounter type: initial encounter Involved ligament of knee: unspecified ligament Qualified Code(s): S83.91XA - Sprain of unspecified site of right knee, initial encounter - Discharge Information *PRESCRIPTION DRUG MONITORING PROGRAM REVIEWED*: Not Applicable *COPY OF PRESCRIPTION DRUG MONITORING REPORT IN PATIENT KRISTEL: Not Applicable Instructions: Knee Sprain, Adult, [id number] Forms: ED Department Discharge Additional Instructions: Rest, ice pack, and elevate the right knee to reduce pain and swelling. Use knee immobilizer, may remove to sleep and shower, otherwise wear it for 5 to 7 days. Follow up in clinic in 5 to 7 days if the knee if not improving as expected. Use Ibuprofen as needed for pain. Follow directions on label of dosing and precautions. Sepsis Event Note (ED) - Focused Exam Vital Signs: Vital Signs Temp Pulse Resp BP Pulse Ox 01/18/21 16:51 97.1 F 94 20 126/60 98 - My Orders Last 24 Hours: My Active Orders 01/18/21 17:30 Immobilizer [RC] ASDIRECTED - Assessment/Plan Last 24 Hours: My Active Orders 01/18/21 17:30 Immobilizer [RC] ASDIRECTED I have read and agree with the documentation that has been completed regarding this visit. By signing this record, I attest that the documentation was completed in my physical presence and is an accurate record of the encounter.
== END 2021-01-18 17:50 | disposition home or self-care (01) ==
LOC: DL.ED 16:42
DX: S83.91XA Sprain of unspecified site of right knee, initial encounter (principal); W17.89XA Other fall from one level to another, initial encounter; Y92.830 Public park as the place of occurrence of the external cause
CPT/HCPCS: 73562-RT; 99282; 99283

== ENCOUNTER 2024-11-03 17:42 | Emergency (ER) | payer BC ==
[2024-11-03] MEDS: Ketorolac 30 MG/ML SDV IVPUSH ONE (18:12)
[2024-11-03 18:13] LABS: BASOPHILS PERCENT AUTO 0.4 % (0.0-1.0); EOSINOPHILS PERCENT AUTO 1.2 % (1.0-3.0); HEMATOCRIT 46.5 % (37.0-47.0); HEMOGLOBIN 14.7 g/dL (12.0-16.0); LYMPHOCYTES PERCENT AUTO 18.6 % (20.5-50.1); MEAN CORPUSCULAR HEMOGLOBIN 26.9 pg (27.0-34.0); MEAN CORPUSCULAR HGB CONC 31.6 g/dL (33.0-35.0); MONOCYTES PERCENT AUTO 6.5 % (2-8); NEUTROPHILS PERCENT AUTO 73.3 % (42.2-75.2); PLATELET COUNT,PLT 369 10^3/uL (150-450); RED BLOOD CELL COUNT 5.47 10^6/uL (4.2-5.4); WHITE BLOOD CELL COUNT,WBC 9.3 10^3/uL (5.0-10.0)
[2024-11-03] MEDS: Sodium Chloride 0.9% 1,000 ML IV ONE (18:13)
[2024-11-03 18:38] LABS: A/G RATIO 1.1; ALANINE AMINOTRANSFERASE,ALT 38 U/L (14-59); ALKALINE PHOSPHATASE 70 U/L (46-116); ANION GAP 13.5 mEq/L (7-13); ASPARTATE AMNIOTRANSFERASE,AST 13 U/L (15-37); BILIRUBIN TOTAL 0.3 mg/dL (0.2-1.0); BLOOD UREA NITROGEN,BUN 10 mg/dL (7-18); BUN/CREATININE RATIO 13.7 (No establ ref range); CALCIUM 9.4 mg/dL (8.5-10.1); CARBON DIOXIDE,CO2 28 mmol/L (21-32); CHLORIDE,CL 105 mmol/L (98-107); CREATININE 0.73 mg/dL (0.55-1.02); GLUCOSE RANDOM 114 mg/dL (70-99); POTASSIUM,K 4.5 mmol/L (3.5-5.1); PROTEIN TOTAL,TP 7.8 g/dL (6.4-8.2); SODIUM,NA 142 mmol/L (136-145)
[2024-11-03 18:39] LABS: ESTIMATED GFR 112 mL/min (>=60)
[2024-11-03] MEDS: Take Home: Benzonatate 100 MG, 6 Cap Pack PO ONE (19:18)
[2024-11-03] MEDS: Dexamethasone 6 MG TABLET PO ONE (19:18)
[2024-11-03] MEDS: Dexamethasone 4 MG Tab PO ONE (19:25)
[2024-11-03 19:31] VITALS: BP 129/82; PULSE 98
== END 2024-11-03 19:28 | disposition home or self-care (01) ==
LOC: DL.ED 17:42
DX: J40 Bronchitis, not specified as acute or chronic (principal); Z79.899 Other long term (current) drug therapy
CPT/HCPCS: 36415; 71046; 80053; 84484; 85025; 85379; 96361; 96374; 99285; A9270; J1885; J7030; J8540